=== PATIENT | female | born 2000 | race Caucasian/White ===

== ENCOUNTER 2020-02-13 14:27 | Emergency (ER) | payer OTHER ==
[~2020-02-13] VITALS: Ht 162.6 cm; Wt 77.1 kg
[2020-02-13] MEDS ORDERED: CLEOCIN HCL300 MG PO (16:19)
== END 2020-02-13 17:27 | disposition home or self-care (01) ==
LOC: ER 14:27
DX: N61.1 Abscess of the breast and nipple (principal)

== ENCOUNTER → 2020-07-17 | Emergency (ER) | payer BC ==
[~2020-07-17] VITALS: Ht 162.6 cm; Wt 96.6 kg
[~2020-07-17] MED LIST: CLEOCIN HCL300 MG PO; ZITHROMAX500 MG PO
== END | disposition home or self-care (01) ==
LOC: ER 10:48
DX: J06.9 Acute upper respiratory infection, unspecified (principal); B96.0 Mycoplasma pneumoniae [M. pneumoniae] as the cause of diseases classified elsewhere; Z03.818 Encounter for observation for suspected exposure to other biological agents ruled out

== ENCOUNTER 2023-04-02 23:54 | Emergency (ER) | payer OTHER ==
[~2023-04-02] VITALS: Ht 162.6 cm; Wt 104.3 kg
[2023-04-03] MEDS ORDERED: B COMPLEX1 EACH (00:25)
[2023-04-03] MEDS ORDERED: ASHWAGANDHA300 MG (00:26)
== END 2023-04-03 03:22 | disposition home or self-care (01) ==
LOC: ER 23:54
DX: R00.2 Palpitations (principal); F41.9 Anxiety disorder, unspecified